=== PATIENT | female | born 1995 | race Caucasian/White ===

== ENCOUNTER 2022-02-16 23:25 | Emergency (ER) | payer MEDICAID ==
[~2022-02-16] VITALS: Ht 165.1 cm; Wt 68.5 kg
[2022-02-16 23:50] VITALS: BP 125/56
--- NOTE | 2022-02-16 23:53 | NUR ---
TO LOBBY A/W BED AMBULATORY
--- NOTE | 2022-02-17 02:56 | NUR ---
CALLED FOR PT IN LOBBY W NO RESPONSE
--- NOTE | 2022-02-17 02:56 | NUR ---
PATIENT LEFT WITHOUT BEING SEEN BY DR. BEAL. NO FURTHER CARE PROVIDED FOR PATIENT.
--- NOTE | 2022-02-17 03:01 | NUR ---
CALLED FOR THE SECOND TIME , NO RESPONSE
--- NOTE | 2022-02-17 03:06 | NUR ---
CALLED FOR THE THIRD TIME , NO RESPONSE
== END 2022-02-17 03:06 | disposition left against medical advice (07) ==
LOC: MED 23:25
DX: M79.10 Myalgia, unspecified site (principal); Z53.21 Procedure and treatment not carried out due to patient leaving prior to being seen by health care provider